=== PATIENT | female | born 1990 | race Caucasian/White ===

== ENCOUNTER → 2022-08-18 | Outpatient (CLI) | payer BC ==
--- NOTE | 2022-08-18 19:20 | Diagnostic Imaging Report ---
INDICATION: Routine care. TECHNIQUE: Multiple real-time grayscale images were obtained over the gravid uterus. COMPARISON: None. FINDINGS: There is a single live intrauterine gestation in cephalic presentation. The cervix is measured at 5.4 cm. The placenta is posterior, and greater than 2 cm away from the internal os. Amniotic fluid index measures 11.8 cm. The heart rate measures 149 BPM. The upper and lower spine are seen. The stomach is seen. The kidneys are seen. The bladder is seen. There are two umbilical arteries consistent with a three-vessel cord. cord insertion is seen. The diaphragm is seen. The lateral ventricles are seen. The cisterna magna and cerebellum are seen. A four-chamber heart is seen. The right and left ventricular outflow tracts are seen. The nose and lips are seen. Biometrical measurements are as follows: Biparietal 4.51 cm, age 19 weeks 5 days. Head circumference 17.33 cm, age 20 weeks 0 days. Abdominal circumference 14.18 cm, age 19 weeks 4 days. Femur length 2.94 cm, age 19 weeks 1 days. Sonographic estimate age: 19 weeks 5 days. Sonographic estimated date of delivery: 01/07/2023. Estimated Weight: 289 gm (+/- 43 gm). LMP percentile: 28%. heart rate: 149 beats per minute. number: 1 of 1. IMPRESSION: 1. Single live intrauterine gestation measuring at 19 weeks and 5 days which is concordant with the clinical dates. 2. No abnormality is seen on anatomic survey. Dictated by: Dictated on workstation # [id number]
== END ==
LOC: RAD 10:30
PROVIDERS: ATTEND Nurse Practitioner Women's Health
DX: Z34.02 Encounter for supervision of normal first pregnancy, second trimester (principal); Z3A.19 19 weeks gestation of pregnancy
CPT/HCPCS: 76805

== ENCOUNTER 2022-12-30 16:56 | Inpatient (IN) | payer BC ==
[2022-12-30] VITALS (21 sets, daily range): BP systolic 103–141; BP diastolic 55–95
[~2022-12-30] VITALS: Ht 165.1 cm; Wt 95.1 kg
[2022-12-30 17:33] LABS: BILIRUBIN,URINE NEGATIVE (NEGATIVE); CLARITY,URINE CLEAR; COLOR,URINE YELLOW; GLUCOSE, URINE (UA) NEGATIVE (NEGATIVE); KETONES,URINE NEGATIVE (NEGATIVE); LEUKOCYTE ESTERASE ,URINE NEGATIVE (NEGATIVE); NITRITE,URINE NEGATIVE (NEGATIVE); PH,URINE 6.5 (5-9); PROTEIN,URINE NEGATIVE (NEGATIVE)
[2022-12-30 18:00] LABS: BACTERIA,URINE NEGATIVE /HPF; RBC,URINE 0-2 /HPF
[2022-12-30] MEDS ORDERED: D5 LR IV SOLUTION 1,000 ML IV SCH (19:30)
[2022-12-30 19:35] LABS: BASOPHILS # (AUTO) 0.1 10^3/uL (0.0-0.1); BASOPHILS % (AUTO) 0 % (0-10); EOSINOPHILS # (AUTO) 0.1 10^3/uL (0.0-0.3); EOSINOPHILS % (AUTO) 0 % (0-10); HEMATOCRIT 38 % (35-52); HEMOGLOBIN 12.8 g/dL (11.5-16.0); LYMPHOCYTES # (AUTO) 2.7 10^3/uL (1.0-4.0); LYMPHOCYTES % (AUTO) 15 % (12-44); MEAN CORPUSCULAR HEMOGLOBIN 29 pg (25-34); MEAN CORPUSCULAR HGB CONC 34 g/dL (32-36); MEAN CORPUSCULAR VOLUME 86 fL (80-99); MEAN PLATELET VOLUME 11.7 fL (9.0-12.2); MONOCYTES # (AUTO) 1.5 10^3/uL (0.0-1.0); MONOCYTES % (AUTO) 8 % (0-12); NEUTROPHILS # (AUTO) 13.8 10^3/uL (1.8-7.8); NEUTROPHILS % (AUTO) 76 % (42-75); PLATELET COUNT 217 10^3/uL (130-400); WHITE BLOOD COUNT 18.3 10^3/uL (4.3-11.0)
[2022-12-30] MEDS ORDERED: fentaNYL 2 mcg/ml BUPIVA 0.125 100 ML ONE (20:04)
[2022-12-30 20:14] LABS: EOSINOPHILS % (MANUAL) 1 %; LYMPHOCYTES % (MANUAL) 20 %; MONOCYTES % (MANUAL) 7 %; NEUTROPHILS % (MANUAL) 72 %; RBC MORPH NORMAL
[2022-12-30] MEDS ORDERED: fentaNYL INJ 100 MCG/2 ML AMP ONE (20:46)
[2022-12-30] MEDS ORDERED: BUPIVACAINE 0.25% 10 ML (SENSORCAINE) VIAL ONE (20:46)
[2022-12-30] MEDS ORDERED: fentaNYL 2 mcg/ml BUPIVA 0.125 100 ML EPI SCH (21:15)
[2022-12-30] MEDS ORDERED: diphenhydrAMINE 50 MG/ML INJ (BENADRYL) IV PRN (21:15)
[2022-12-30] MEDS ORDERED: ONDANSETRON 4 MG/2 ML (SDV) Z0FRAN IV PRN (21:15)
[2022-12-30] MEDS ORDERED: NALOXONE 0.4 MG/ML 1 ML (NARCAN) VIAL IV PRN (21:15)
[2022-12-30] MEDS ORDERED: LACTATED RINGERS 1,000 ML IV SCH (21:15)
[2022-12-30] MEDS ORDERED: CATHETER FLUSH 10 ML SYR IV SCH (22:00)
[2022-12-31] VITALS (22 sets, daily range): BP systolic 103–144; BP diastolic 54–73
[2022-12-31] MEDS ORDERED: OXYTOCIN PRE-MIX DRIP 500 ML IV ONE ×2 (01:37→03:19)
[2022-12-31] MEDS ORDERED: LIDOCAINE 1% INJ 10 ML VIAL ONE (02:40)
[2022-12-31] MEDS: OXYTOCIN PRE-MIX DRIP 500 ML IV SCH ×2 (03:09→03:41)
--- NOTE | 2022-12-31 03:23 | History & Physical-OB ---
OB - Chief Complaint & HPI Date/Time Date of Admission: Date of Admission: Dec 30, 2022 at 19:06 Date seen by a Provider: Dec 31, 2022 Time Seen by a Provider: 02:45 Chief Complaint/History OB-Reason for Admission/Chief: Onset of Labor Hx : 1 Hx Para: 0 Expected Date of Delivery: Jan 07, 2023 Gestational Age in Weeks: 38 Gestational Age in Days: 6 Other reason for admission: Patient presented in active labor yesterday evening Admission Nurse Assessment Rev: Yes History of Labs GBS neg Allergies and Home Medications Allergies Coded Allergies: No Known Drug Allergies (Unverified , 12/30/22) Patient Home Medication List Home Medication List Reviewed: Yes OB - History Hx of Present Care: Yes Ultrasounds: Normal mid trimester US Obstetrical Complications: None Medical Complications: None Obstetrical History Hx : 1 Hx Para: 0 Hx Total # of Abortions (Spona: 0 Patient Past Medical History nc Social History/Family History Alcohol Use: Denies Use Recreational Drug Use: No 2nd Hand Smoke Exposure: No Immunizations Influenza Vaccine Up-to-Date: Yes; Up-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 OB - Admission Exam Physical Exam Vitals: Vital Signs 12/30/22 12/30/22 12/31/22 17:34 21:51 01:07 Temp 37.0 Pulse 111 Resp 18 B/P (MAP) 122/71 (88) Pulse Ox 99 O2 Delivery Room Air HEENT: NCAT Heart: Rhythm Normal Lungs: Clear Abdomen: Gravid Extremities: Normal Reflexes: Normal Cervical Dilatation: 4cm Effacement: 75% Station: -1 Membranes: Intact Heart Rate: 130's Accelerations: Accelerations Present Decelerations: No Decelerations Short Term Variability: Present Nursing Home Variability: Average (6-25) Contractions on Admission: < 5 Minutes Apart Intensity: Firm Labs Laboratory Tests Test 12/30/22 17:31 12/30/22 19:17 Range/Units Urine Color YELLOW Urine Clarity CLEAR Urine pH 6.5 5-9 Urine Specific [place] <=1.005 1.016-1.022 Urine Protein NEGATIVE NEGATIVE Urine Glucose (UA) NEGATIVE NEGATIVE Urine Ketones NEGATIVE NEGATIVE Urine Nitrite NEGATIVE NEGATIVE Urine Bilirubin NEGATIVE NEGATIVE Urine Urobilinogen 0.2 < = 1.0 MG/DL Urine Leukocyte Esterase NEGATIVE NEGATIVE Urine RBC (Auto) 3+ H NEGATIVE Urine RBC 0-2 /HPF Urine WBC NONE /HPF Urine Squamous Epithelial Cells 2-5 /HPF Urine Crystals NONE /LPF Urine Bacteria NEGATIVE /HPF Urine Casts NONE /LPF Urine Mucus N /LPF Urine Culture Indicated NO White Blood Count 18.3 H 4.3-11.0 10^3/uL Red Blood Count 4.41 3.80-5.11 10^6/uL Hemoglobin 12.8 11.5-16.0 g/dL Hematocrit 38 35-52 % Mean Corpuscular Volume 86 80-99 fL Mean Corpuscular Hemoglobin 29 25-34 pg Mean Corpuscular Hemoglobin Concent 34 32-36 g/dL Red Cell Distribution Width 14.5 10.0-14.5 % Platelet Count 217 130-400 10^3/uL Mean Platelet Volume 11.7 9.0-12.2 fL Immature Granulocyte % (Auto) 1 % Neutrophils (%) (Auto) 76 H 42-75 % Lymphocytes (%) (Auto) 15 12-44 % Monocytes (%) (Auto) 8 0-12 % Eosinophils (%) (Auto) 0 0-10 % Basophils (%) (Auto) 0 0-10 % Neutrophils # (Auto) 13.8 H 1.8-7.8 10^3/uL Lymphocytes # (Auto) 2.7 1.0-4.0 10^3/uL Monocytes # (Auto) 1.5 H 0.0-1.0 10^3/uL Eosinophils # (Auto) 0.1 0.0-0.3 10^3/uL Basophils # (Auto) 0.1 0.0-0.1 10^3/uL Immature Granulocyte # (Auto) 0.2 H 0.0-0.1 10^3/uL Neutrophils % (Manual) 72 % Lymphocytes % (Manual) 20 % Monocytes % (Manual) 7 % Eosinophils % (Manual) 1 % Blood Morphology Comment NORMAL OB - Assessment/Plan/Diagnosis Assessment Assessment: active labor Admission Dx 32 yo @ 38.6 weeks Active labor GBS neg Admission Status: Inpatient Order (span 2 midnights) Reason for Inpatient Admission: Active labor at 38.6 Plan Plan: Expectant Management DAISY HUGHES DO Dec 31, 2022 03:23
--- NOTE | 2022-12-31 03:28 | OB Labor & Delivery Record ---
L&D History Date of Service Date of Service: Dec 31, 2022 History Expected Date of Delivery: Jan 07, 2023 Gestational Age in Weeks: 39 Hx : 1 Hx Para: 0 Complications Events: Routine care Operative Indications (Cesarea: N/A-Vaginal Delivery Intrapartal Events: None L&D Stage1 Stage One Onset of Labor - Date: Dec 31, 2022 Monitors and Tracing Monitor Mode: External Heart Rate: 140 Monitor Accelerations: Uniform Monitor Decelerations: None Station: -1 Senior Living Variability: Average (6-10) Short Term Variability: Present Presentation: Vertex Vital Signs VS - Last 72 Hours, by Label 12/30/22 12/30/22 12/30/22 12/30/22 17:34 20:12 20:28 20:43 Temp 37.0 Pulse 109 100 100 99 Resp 18 18 18 18 B/P (MAP) 129/84 132/81 (98) 139/74 (95) 135/95 (108) Pulse Ox 98 O2 Delivery Room Air Room Air Room Air Room Air 12/30/22 12/30/22 12/30/22 12/30/22 21:02 21:06 21:12 21:18 Pulse 125 118 112 109 Resp 18 18 18 18 B/P (MAP) 141/85 (103) 139/85 (103) 128/74 (92) 128/72 (90) Pulse Ox 99 98 96 97 O2 Delivery Room Air Room Air Room Air Room Air 12/30/22 12/30/22 12/30/22 12/30/22 21:22 21:27 21:32 21:37 Pulse 106 108 103 96 Resp 18 18 18 18 B/P (MAP) 114/56 (75) 103/58 (73) 116/69 (85) 111/62 (78) Pulse Ox 97 97 98 99 O2 Delivery Room Air Room Air Room Air Room Air 12/30/22 12/30/22 12/30/22 12/30/22 21:51 22:07 22:23 22:36 Pulse 102 96 109 104 Resp 18 18 18 18 B/P (MAP) 114/66 (82) 122/66 (84) 107/62 (77) 115/61 (79) Pulse Ox 99 O2 Delivery Room Air Room Air Room Air Room Air 12/30/22 12/30/22 12/30/22 4/12/23 22:53 23:08 23:22 23:37 Pulse 115 96 101 107 Resp 18 18 18 18 B/P (MAP) 121/69 (86) 117/65 (82) 108/55 (72) 121/66 (84) O2 Delivery Room Air Room Air Room Air Room Air 12/30/22 12/31/22 12/31/22 12/31/22 23:52 00:07 00:21 00:36 Pulse 110 113 99 109 Resp 18 18 18 18 B/P (MAP) 126/67 (86) 122/70 (87) 117/64 (81) 118/62 (80) O2 Delivery Room Air Room Air Room Air Room Air 12/31/22 12/31/22 00:51 01:07 Pulse 115 111 Resp 18 18 B/P (MAP) 126/71 (89) 122/71 (88) O2 Delivery Room Air Room Air Rupture of Membranes Spontaneous Ruture of Membrane: Yes Amniotic Membrane Rupture Time: 2208 Amniotic Membrane Fluid Desc.: Clear Vaginal Bleeding Description: Normal Show Induction/Anesthesia Epidural Cath Placement - Time: 2102 Progress/Notes Patient admitted in active labor. She received no augmentation and progressed after epidural was placed to 9 cm when SROM occurred than then to complete and allowed to labor down at which point she began having recurrent deep variable decelerations with contractions L&D Stage2 Stage Two Stage II Date: Dec 31, 2022 Monitors and Tracing Monitor Mode: External Heart Rate: 140 Monitor Accelerations: Uniform Monitor Decelerations: None Senior Living Variability: Average (6-10) Short Term Variability: Present Position: Right Occiput Anterior Presentation: Vertex Signs of Distress by FHT Signs of Distress Due to heart rate at one point noted in the 50s with slow return to baseline, decision was made at +2 station to expedite delivery of kiwi vacuum extractor. Suction cup placed over flexion point on scalp down the sagital suture line. With next maternal push, RML performed, suction appled to handpiece to 450 mmHg, and head delivered over RML episiotomy with gentle extension of the head. Suction then released. Nuchal cord reduced and remainder of delivery was unremarkable Cord Descript/Complications Cord Vessel Description: 3 Vessels Complications nuchal cord reduced x 1 Delivery Type Infant Delivery Method: Low Vacuum Extraction Anterior Shoulder: Left Episiotomy/Perineal Laceration Laceraction(s)/Extensions: Yes Episiotomy Description: Right Mediolateral Degree (describe repair) RML repaired using 3-0 rapide and 2-0 vicryl suture Condition of Infant Delivery 1 minute Comment: 8 5 minute Comment: 9 Notes Live female infant weight pending Condition of Infant Condition of Infant: Living Exam: No Observed Abnormalities Resuscitation Resuscitation: N/A - Spontaneous Resp L&D Stage3 Stage Three Stage III Date: Dec 31, 2022 Pictocin Pitocin Administration Comment: 30 mu wide open Placenta Delivery Placenta Delivery: Spontaneous Delivery Summary Summary Estimated blood loss (mL): 350 Attending at delivery: Daisy Hughes DO Condition of Delivery Examined: Cervix Examined, Uterus Explored Post Hemorrhage: No Condition of Mother stable Condition of (s) stable DAISY HUGHES DO Dec 31, 2022 03:28
--- NOTE | 2022-12-31 03:29 | Discharge Inst-Women's Service ---
Discharge Inst-Women's Serv Depart Medication/Instructions New, Converted or Re-Newed RX: Transmitted to Pharmacy Final Diagnosis PPD 1 NVD Problems Reviewed?: Yes Consults/Follow Up Additional Follow Up: Yes Orders/Referrals Dr. Hughes in 6 weeks Activity Activity: Activity as Tolerated Driving Instructions: No Driving for 1 Week NO SMOKING: NO SMOKING Nothing Inside Vagina: No Douching, No Nichols, No Tampons Diet Discharge Diet: No Restrictions Symptoms to Report to : Bleeding Excessive, Pain Increased, Fever Over 101 Degrees F, Vaginal Bleeding Increase, Questions/Concerns For Any Problems or Questions: Contact Your Physician DAISY HUGHES DO Dec 31, 2022 03:29
[2022-12-31] MEDS ORDERED: TETANUS,DIPTH,PERTUSS P/F (BOOSTRIX) 0.5 ML VIAL IM ONE (03:30)
[2022-12-31] MEDS ORDERED: MEASLES,MUMPS,RUBELLA 1 EA INJ SQ ONE (03:30)
[2022-12-31] MEDS ORDERED: DIBUCAINE 1% OINTMENT 28 GM TUBE TOP PRN (03:30)
[2022-12-31] MEDS ORDERED: BENZOCAINE/MENTHOL (DERMOPLAST) 56 ML CAN TP PRN (03:30)
[2022-12-31] MEDS ORDERED: HYDROcodone/APAP 5 MG/325 MG (LORTAB) TAB PO PRN (03:30)
[2022-12-31] MEDS ORDERED: WITCH HAZEL(TUCKS) 40 EA JAR TOP PRN (03:30)
[2022-12-31] MEDS ORDERED: NALOXONE 0.4 MG/ML 1 ML (NARCAN) VIAL IV PRN (03:30)
[2022-12-31] MEDS: IBUPROFEN 600 MG (MOTRIN) TAB PO SCH ×3 (05:58→17:54)
[2022-12-31] MEDS ORDERED: CATHETER FLUSH 10 ML SYR IV SCH (06:00)
[2022-12-31] MEDS: DOCUSATE SODIUM 100 MG (COLACE) CAP PO SCH ×2 (08:11→20:16)
[2022-12-31] MEDS: FERROUS SULF 325 MG (IRON) TAB PO SCH (08:11)
[2022-12-31] MEDS: PRENATAL VITAMIN 1 EA TAB PO SCH (08:11)
--- NOTE | 2022-12-31 10:19 | Anesthesia-Regional Post-Op ---
Regional Patient Condition Mental Status: Alert, Oriented x3 Circulation: Same as Pre-Op Headache: Absent Sensation: Full Recovery Motor Block: Absent Post Op Complications Complications None Follow Up Care/Instructions Patient Instructions None needed. Anesthesia/Patient Condition Patient is doing well, no complaints, stable vital signs, no apparent adverse anesthesia problems. No complications reported per nursing. DESI PHAN CRNA Dec 31, 2022 10:19
[2023-01-01] MEDS: IBUPROFEN 600 MG (MOTRIN) TAB PO SCH ×3 (00:32→12:04)
[2023-01-01 00:33] VITALS: BP 119/66
[2023-01-01 05:53] LABS: BASOPHILS # (AUTO) 0.1 10^3/uL (0.0-0.1); BASOPHILS % (AUTO) 0 % (0-10); EOSINOPHILS # (AUTO) 0.2 10^3/uL (0.0-0.3); EOSINOPHILS % (AUTO) 1 % (0-10); HEMATOCRIT 29 % (35-52); HEMOGLOBIN 9.8 g/dL (11.5-16.0); LYMPHOCYTES # (AUTO) 3.4 10^3/uL (1.0-4.0); LYMPHOCYTES % (AUTO) 18 % (12-44); MEAN CORPUSCULAR HEMOGLOBIN 30 pg (25-34); MEAN CORPUSCULAR HGB CONC 33 g/dL (32-36); MEAN CORPUSCULAR VOLUME 89 fL (80-99); MEAN PLATELET VOLUME 11.2 fL (9.0-12.2); MONOCYTES # (AUTO) 1.5 10^3/uL (0.0-1.0); MONOCYTES % (AUTO) 8 % (0-12); NEUTROPHILS # (AUTO) 13.7 10^3/uL (1.8-7.8); NEUTROPHILS % (AUTO) 72 % (42-75); PLATELET COUNT 181 10^3/uL (130-400); WHITE BLOOD COUNT 19.1 10^3/uL (4.3-11.0)
[2023-01-01 06:29] VITALS: BP 111/80
[2023-01-01 09:14] VITALS: BP 123/70
[2023-01-01] MEDS: FERROUS SULF 325 MG (IRON) TAB PO SCH (09:15)
[2023-01-01] MEDS: PRENATAL VITAMIN 1 EA TAB PO SCH (09:15)
[2023-01-01] MEDS: DOCUSATE SODIUM 100 MG (COLACE) CAP PO SCH (09:15)
[2023-01-01] MEDS ORDERED: ACHD5005 PO (10:56)
[2023-01-01] MEDS ORDERED: DIBU30OI TOP (10:56)
[2023-01-01] MEDS ORDERED: BENZ78AE5 TP (10:56)
[2023-01-01] MEDS ORDERED: IBUP-844 PO (10:56)
[2023-01-01] MEDS ORDERED: WTCHGPD TOP (10:56)
[2023-01-01] MEDS ORDERED: DOCU100C37 PO (10:56)
[2023-01-01] MEDS ORDERED: FERR325T24 PO (10:56)
--- NOTE | 2023-01-14 13:31 | Physician Query Clarification ---
PQ-Intro New Diagnosis Admission/Discharge Admission Date: Dec 30, 2022 at 19:06 Discharge Date: Jan 01, 2023 at 12:55 Dr. Hughes, The medical record reflects the following clinical scenario: History/Risk Factors: vacuum extraction, episiotomy Clinical Findings: Hgb/Hct 12.8/38 > 9.8/29 Treatment: Ferrous sulfate 325 mg Question: What condition best reflects the above clinical scenario? Please document a response in the Progress Noter or Discharge Summary. 1. acute blood loss anemia 2. anemia not due to blood loss 3. Other, with explanation of the clinical findings. 4. Clinically undetermined, no explanation for the clinical findings. PHYSICIAN RESPONSE What condition reflects above: 1 Explanation of clincal finding Acute blood loss anemia In responding to this query, please exercise your independent professional judgment. The purpose of this communication is to more accurately reflect the complexity of your patients condition. The fact that a question is asked does not imply that any particular answer is desired or expected. Thank you for your timely response to this clarification. Requestors name: Ember THIS PHYSICIAN QUERY FORM IS A PERMANENT PART OF THE MEDICAL RECORD EMBER WOODARD Jan 14, 2023 13:31 DAISY HUGHES DO January 18, 2023 07:11
== END 2023-01-01 12:55 | disposition home or self-care (01) | DRG 806 ==
LOC: LDRP 16:56 → WSo 16:56 → LDRP 19:06
PROVIDERS: ADMIT Obstetrics & Gynecology; ATTEND Obstetrics & Gynecology
PROC: 10D07Z6 Extraction of Products of Conception, Vacuum, Via Natural or Artificial Opening (ICD-10-PCS; principal; 2022-12-30)
PROC: 0W8NXZZ Division of Female Perineum, External Approach (ICD-10-PCS; 2022-12-30)
DX: O76 Abnormality in fetal heart rate and rhythm complicating labor and delivery (principal); D62 Acute posthemorrhagic anemia; Z37.0 Single live birth; O69.81X0 Labor and delivery complicated by cord around neck, without compression, not applicable or unspecified; O90.81 Anemia of the puerperium; Z3A.38 38 weeks gestation of pregnancy
CPT/HCPCS: 36415; 81000; 85007; 85025; 85027; 86780; 86850; 86900; 86901; 99213